=== PATIENT | female | born 1945 | race African-American/Black ===

== ENCOUNTER 2021-12-04 08:25 | Outpatient (CLI) | payer MEDICARE ==
[2021-12-04 08:50] LABS: Estimated GFR-MDRD - POC Greater than 90
== END 2021-12-04 08:26 | disposition home or self-care (01) ==
LOC: BICCT 08:25
PROVIDERS: ATTEND Urology
DX: N39.41 Urge incontinence (principal); R31.29 Other microscopic hematuria; N81.11 Cystocele, midline; K59.00 Constipation, unspecified; K57.30 Diverticulosis of large intestine without perforation or abscess without bleeding; N32.89 Other specified disorders of bladder
CPT/HCPCS: 74178; 82565

== ENCOUNTER 2022-01-17 14:12 | Outpatient (CLI) | payer MEDICARE | END 2022-01-17 14:13 | disposition home or self-care (01) | LOC: LABBT 14:12 | PROVIDERS: ATTEND Urology | DX: Z01.818 Encounter for other preprocedural examination (principal); M54.16 Radiculopathy, lumbar region; N39.0 Urinary tract infection, site not specified; N39.46 Mixed incontinence; K59.00 Constipation, unspecified; N81.11 Cystocele, midline; R35.0 Frequency of micturition; R31.29 Other microscopic hematuria | CPT/HCPCS: 80048; 85027; 85610; 85730; 86850; 86900; 86901; 87811; 93005; 93010 ==

== ENCOUNTER 2022-01-22 07:09 | Day surgery (SDC) | payer MEDICARE ==
[2022-01-17 15:22] LABS: Hemoglobin 11.3 g/dL (12.0-15.5); Mean Corpuscular HGB CONC 32.5 g/dL (32.0-36.0); Mean Corpuscular Hemoglobin 30.4 pg (27.0-33.0); Mean Corpuscular Volume 93.5 fl (81.6-98.3); Mean Platelet Volume 9.5 fl (7.4-10.4); Platelet Count 262 10x3/uL (150-450); RBC Distribution Width 14.6 % (11.5-14.5); Red Blood Cell (RBC) Count 3.72 10x6/uL (3.90-5.03); White Blood Cell (WBC) Count 5.3 10x3/uL (3.5-10.5)
[2022-01-17 15:37] LABS: INR-International Normal Ratio 0.9; PTT 22.2 sec (22.0-33.0); Prothrombin Time 10.3 sec (9.5-12.1)
[2022-01-17 15:38] LABS: Anion Gap 11 mmol/L (10-20); BUN (Urea Nitrogen) 14 mg/dL (9.8-20.1); Calc. Creatinine Clearance 0 mL/min (70-130); Calcium 10.6 mg/dL (7.8-10.44); Carbon Dioxide 25 mmol/L (23-31); Chloride 111 mmol/L (98-107); Estimated GFR 89; Glucose 90 mg/dL (83-110); Potassium 3.9 mmol/L (3.5-5.1); Sodium 143 mmol/L (136-145)
[2022-01-20 10:15] VITALS: BMI 22.8
[2022-01-22] MEDS ORDERED: Levofloxacin 500 mg/D5W 100 ml Premix Bag ONE (07:52)
[2022-01-22] MEDS ORDERED: Lidocaine 1% MPF 2 ML VIAL ONE (07:52)
[2022-01-22] MEDS ORDERED: Fentanyl 100 MCG/2 ML VIAL ONE ×2 (09:07→10:17)
[2022-01-22] MEDS ORDERED: Ondansetron ODT 4 MG TAB ONE (09:08)
[2022-01-22] MEDS ORDERED: Lidocaine 1% PF 5 ML VIAL ONE (09:31)
[2022-01-22] MEDS ORDERED: Ondansetron PF 4 MG/2 ML Vial ONE (09:31)
[2022-01-22] MEDS ORDERED: Dexamethasone 20 MG/5 ML VIAL ONE (09:31)
[2022-01-22] MEDS ORDERED: PROPOFOL 200 MG/20 ML VIAL ONE (09:31)
[2022-01-22] MEDS ORDERED: Labetalol HCl 100 MG/20 ML VIAL ONE (10:15)
[2022-01-22] MEDS ORDERED: Phenazopyridine HCl 100 MG TAB ONE (10:50)
[2022-01-22] MEDS ORDERED: Oxybutynin 5 MG TAB ONE (10:50)
== END 2022-01-22 14:40 | disposition home or self-care (01) ==
LOC: SDC 07:09
PROVIDERS: ATTEND Urology
PROC: 0TBB8ZX Excision of Bladder, Via Natural or Artificial Opening Endoscopic, Diagnostic (ICD-10-PCS; principal; 2022-01-22)
DX: N32.89 Other specified disorders of bladder (principal); N81.10 Cystocele, unspecified; R31.29 Other microscopic hematuria; I10 Essential (primary) hypertension; E78.5 Hyperlipidemia, unspecified; G89.4 Chronic pain syndrome; Z79.899 Other long term (current) drug therapy; Z20.822 Contact with and (suspected) exposure to COVID-19; Z01.818 Encounter for other preprocedural examination; M54.16 Radiculopathy, lumbar region; N39.0 Urinary tract infection, site not specified; N39.46 Mixed incontinence; K59.00 Constipation, unspecified; N81.11 Cystocele, midline; R35.0 Frequency of micturition
CPT/HCPCS: 36415; 80048; 85027; 85610; 85730; 86850; 86900; 86901; 87811; 88305; 93005; 93010; J1100; J1956; J2405; J2704; J3010; Q0162